=== PATIENT | female | born 1990 | race Caucasian/White ===

== ENCOUNTER 2021-08-01 15:29 | Emergency (ER) | payer SELFPAY ==
[2021-08-01 15:37] VITALS: BP 120/80; PULSE 102; RESP 18; TEMP 36.4; O2SAT 100; BMI 30.4
[2021-08-01 16:42] LABS: Basophils # 0.1 10^3/uL (0.0-0.1); Basophils % 1.1 %; Eosinophils # 0.3 10^3/uL (0.0-0.8); Eosinophils % 3.2 %; Hemoglobin 12.4 g/dL (11.5-15.3); Lymphocytes % 23.7 %; Mean Corpuscular HGB Conc 34.4 g/dL (30.0-36.0); Mean Corpuscular Hemoglobin 39.2 pg (28.0-34.0); Mean Corpuscular Volume 113.9 fl (81-99); Mean Platelet Volume 9.3 fL (7.4-10.4); Monocytes # 0.4 10^3/uL (0.2-0.9); Monocytes % 4.6 %; Neutrophils # 5.59 10^3/uL (1.8-7.7); Nucleated Red Blood Cells % 0 %; Platelet Count 377 10^3/cmm (130-400); Red Blood Count 3.16 10^6/uL (4.1-5.3); Red Cell Distribution Width 15.9 % (12.1-15.1); White Blood Count 8.5 10^3/uL (4.0-10.0)
[2021-08-01 16:59] LABS: HCG, Serum Qual Negative (Negative)
[2021-08-01 17:14] LABS: Alanine Aminotransferase 15 U/L (0-33); Albumin Level 3.3 g/dL (3.5-5.2); Alkaline Phosphatase 103 IU/L (35-105); Aspartate Amino Transferase 20 U/L (0-32); Blood Urea Nitrogen 3 mg/dL (6-20); Calcium 8.5 mg/dL (8.5-10.5); Carbon Dioxide 25 mmol/L (22-29); Chloride 98 mmol/L (98-107); Globulin 3.1 g/dL (1.3-4.6); Glucose 169 mg/dL (65-115); Osmolality Calculated 280 mOsm/kg (285-295); Sodium 135 mmol/L (136-145); Total Bilirubin 0.3 mg/dL (0.15-1.2); Total Protein 6.4 g/dL (6.6-8.7)
[2021-08-01 17:22] LABS: Add Urine Microscopic? YES; Bilirubin Urine 1+ (Negative); Blood Urine 2+ (Negative); Glucose Urine UA 2+ (Normal); Ketones Urine 1+ (Negative); Leukocyte Esterase Urine Negative (Negative); Nitrate Urine Negative (Negative); Protein Urine Neg (Negative); Sulfosalicylic Acid Urine Negative (Negative); Urine Appearance Clear (CLEAR); Urine Color Dark Yellow (Yellow); Urobilinogen Urine 4 mg/dL (Negative); pH Urine 8 (5-7)
[2021-08-01 17:23] LABS: Add Urine Culture? Yes; Bacteria Urine 1+ /hpf; Mucus Urine 1+ /hpf; RBC Urine 0-4 /hpf (0-2); WBC Urine 15-25 /hpf (0-5)
[2021-08-01 17:43] VITALS: BP 130/87; PULSE 109; RESP 18; O2SAT 98
--- NOTE | 2021-08-01 19:28 | ED_ITS ---
HPI - Weakness General: Chief complaint: Weakness Stated complaint: ILL X 2 MO:AFTER ABX,UNABLE TO KEEP FOOD DOWN,WEAK Time Seen by Provider: 08/01/21 19:28 History of Present Illness: HPI Narrative: 30-year-old female comes in today with complaints of persistent nausea and vomiting, weakness, and pain in bilateral feet. Patient denies any chronic medical problems. Patient reported on May 25 she had a urinary tract infection and was treated with a injection in the office and then Cipro to follow. Patient reports since that time she has had nausea and vomiting and diarrhea. Patient appears mildly unwell but not toxic. Patient does report pain in the lower feet bilaterally. Patient denies any history of diabetes. Review of Systems General: Reports: 10 or more systems reviewed and unremarkable except in HPI and below Const: Reports: malaise Musc: Reports: muscle weakness Neuro: Reports: weakness in extremities [facility] Female Reproductive History: Date of last menstrual period: 07/13/21 Physical Exam Const: COMMON NORMALS: no acute distress and patient oriented x3 GENERAL APPEARANCE: cooperative HENMT: COMMON NORMALS: normocephalic and Normal external nose present HEAD & SCALP: normal to inspection and normocephalic NOSE: Normal external nose present MOUTH: Normal oral and palatal mucosa present Eye: GENERAL EYE: appearance normal, both eyes and all related structures Neck/C-Spine: COMMON NORMALS: full ROM Lymph: LYMPHATIC: no lymphadenopathy noted Chest: COMMONS NORMALS: normal inspection of the chest Resp: COMMON NORMALS: normal respiratory effort EFFORT & INSPECTION: Yes able to speak in complete sentences Cardio: COMMON NORMALS: regular rate and regular rhythm RATE: regular rate RHYTHM: regular rhythm GI: COMMON NORMALS: non-tender : COMMON NORMALS: Yes no CVA tenderness BLADDER/KIDNEY EXAM: Yes no CVA tenderness Back/Pelvis: COMMON NORMALS: no CVA tenderness and thoracic and lumbar spine normal to inspection Extremity: NARRATIVE EXTREMITY EXAM: Tenderness to palpation of the bilateral feet. Pulses are intact. No edema or redness is noted. Neuro: COMMON NORMALS: patient oriented x3 and moves all extremities Psych: COMMON NORMALS: mental status grossly normal and cooperative Skin: COMMON NORMALS: no rashes or lesions noted GENERAL SKIN EXAM: no rashes or lesions noted Course ED course: 2129, reviewed CT scan with Dr. Madrid who recommended I talk with Dr. Wall, urologist for further recommendations. Dr. Wall was consulted regarding CT scan showing a left pyelonephritis with possible developing intraparenchymal abscesses. Dr. Wall recommended IV antibiotic and then discharge to home or admit as patient's condition suggest. Reviewed Dr. Wall's comments with Dr. Madrid he recommended IV antibiotic and then oral antibiotics for home. Patient was given 2 g of ceftriaxone with Levaquin 500 mg daily to follow. I reviewed this with patient who agreed to plan. I also recommended patient monitor for worsening symptoms such as high fever or alicia bility to hold medications down. Patient will follow up with the ER if she develops any of these symptoms. Vital Signs: Vital signs: Vital Signs Temperature 97.5 F L 08/01/21 15:37 Pulse Rate 109 H 08/01/21 17:43 Respiratory Rate 18 08/01/21 17:43 Blood Pressure 130/87 08/01/21 17:43 Pulse Oximetry 98 08/01/21 17:43 MDM - Weakness MDM Narrative: Medical decision making narrative: 30-year-old female comes in today with complaints of poor recovery after kidney infection. Patient was first diagnosed with a kidney infection on May 25. After completing antibiotics patient did have some nausea and vomiting that seem to wax and wane over the last 2 months. Patient though reports for the last week patient has been worsening symptoms to the point that she was unable to walk due to weakness and pain in the feet. Exam notes abdominal is soft and nontender. Patient does have some mild CVA tenderness on the left side with percussion. Vital signs were normal with no fever and only a slightly elevated pulse at 102. Differential diagnosis includes but not limited to pyelonephritis, renal abscess, UTI, cancer. Laboratory values showed a white count of 8.5, patient had a sodium 135 and potassium of 3.0, and a blood glucose of 169, anion gap was normal. Urinalysis showed white blood cell counts although the cath was dirty. CT showed some parenchymal stranding suggestion of a pyelonephritis with some possible developing abscess. This was reviewed with Dr. Madrid and Dr. Wall with recommendations for IV antibiotics, IV fluids, and then home with oral antibiotic. Patient agreed to plan with recommendations for follow-up or return to the ER. Lab Data: Labs: Lab Results 08/01/21 08/01/21 08/01/21 16:31 16:31 16:31 WBC 8.5 10^3/uL 10^3/ uL (4.0-10.0) RBC 3.16 10^6/uL L 10 ^6/uL (4.1-5.3) Hgb 12.4 g/dL g/dL (11.5-15.3) Hct 36.0 % L % (37.0-47.0) MCV 113.9 fl H fl (81-99) MCH 39.2 pg H pg (28.0-34.0) MCHC 34.4 g/dL g/dL (30.0-36.0) RDW 15.9 % H % (12.1-15.1) Plt Count 377 10^3/cmm 10^3 /cmm (130-400) MPV 9.3 fL fL (7.4-10.4) Neut % (Auto) 66.0 % % Lymph % (Auto) 23.7 % % [place] % (Auto) 4.6 % % Eos % (Auto) 3.2 % % Baso % (Auto) 1.1 % % Neut # (Auto) 5.59 10^3/uL 10^3 /uL (1.8-7.7) Lymph # (Auto) 2.0 10^3/uL 10^3/ uL (0.8-4.8) [place] # (Auto) 0.4 10^3/uL 10^3/ uL (0.2-0.9) Eos # (Auto) 0.3 10^3/uL 10^3/ uL (0.0-0.8) Baso # (Auto) 0.1 10^3/uL 10^3/ uL (0.0-0.1) Nucleated RBC % (a uto) 0 % % Nucleated RBCs # 0.0 /100WBC /100W BC Sodium 135 mmol/L L mmol /L (136-145) Potassium 3.0 mmol/L L mmol /L (3.5-5.1) Chloride 98 mmol/L mmol/L (98-107) Carbon Dioxide 25 mmol/L mmol/L (22-29) Anion Gap 15.0 (5-19) BUN 3 mg/dL L mg/dL (6-20) Creatinine 0.4 mg/dL L mg/dL (0.5-0.9) GFR Calculation 185.0 mL/min H mL /min (90-130) Glucose 169 mg/dL H mg/dL (65-115) Calculated Osmolal ity 280 mOsm/kg L mOs m/kg (285-295) Calcium 8.5 mg/dL mg/dL (8.5-10.5) Total Bilirubin 0.3 mg/dL mg/dL (0.15-1.2) AST 20 U/L U/L (0-32) ALT 15 U/L U/L (0-33) Alkaline Phosphata se 103 IU/L IU/L (35-105) Total Protein 6.4 g/dL L g/dL (6.6-8.7) Albumin 3.3 g/dL L g/dL (3.5-5.2) Globulin 3.1 g/dL g/dL (1.3-4.6) HCG, Qual Negative (Negative) Urine Color Urine Appearance Urine pH Ur Specific Gravit y Urine Protein Urine Glucose (UA) Urine Ketones Urine Blood Urine Nitrate Urine Bilirubin Prot Sulfosalicyli c Acd Urine Urobilinogen Ur Leukocyte Nayana ase Urine RBC Urine WBC Ur Squamous Epith Cells Amorphous Sediment Urine Bacteria Urine Mucus 08/01/21 16:31 WBC RBC Hgb Hct MCV MCH MCHC RDW Plt Count MPV Neut % (Auto) Lymph % (Auto) [place] % (Auto) Eos % (Auto) Baso % (Auto) Neut # (Auto) Lymph # (Auto) [place] # (Auto) Eos # (Auto) Baso # (Auto) Nucleated RBC % (a uto) Nucleated RBCs # Sodium Potassium Chloride Carbon Dioxide Anion Gap BUN Creatinine GFR Calculation Glucose Calculated Osmolal ity Calcium Total Bilirubin AST ALT Alkaline Phosphata se Total Protein Albumin Globulin HCG, Qual Urine Color Dark yellow (Yellow) Urine Appearance Clear (CLEAR) Urine pH 8 H (5-7) Ur Specific Gravit y 1.010 (1.005-1.030) Urine Protein Neg (Negative) Urine Glucose (UA) 2+ H (Normal) Urine Ketones 1+ H (Negative) Urine Blood 2+ H (Negative) Urine Nitrate Negative (Negative) Urine Bilirubin 1+ H (Negative) Prot Sulfosalicyli c Acd Negative (Negative) Urine Urobilinogen 4 mg/dL H mg/dL (Negative) Ur Leukocyte Nayana ase Negative (Negative) Urine RBC 0-4 /hpf H /hpf (0-2) Urine WBC 15-25 /hpf H /hpf (0-5) Ur Squamous Epith Cells 5-10 /hpf H /hpf (0-5) Amorphous Sediment Not Reportable Urine Bacteria 1+ /hpf H /hpf (NONE) Urine Mucus 1+ /hpf /hpf Discharge Plan Discharge Patient Disposition: Home Clinical Impression: Pyelonephritis, Dehydration Malnutrition Qualifiers: Malnutrition type: unspecified type Qualified Code(s): E46 - Unspecified protein-calorie malnutrition Condition: Stable Prescriptions: New levofloxacin 500 mg tablet 500 mg PO DAILY 10 Days Qty: 10 RF: 0 ondansetron 4 mg tablet,disintegrating 4 mg PO Q8H PRN (Reason: nausea and vomiting) Qty: 10 RF: 0 Discharge Orders: Discharge ED (Routine); Ordered 08/01/21 Ordered By: Scot Mchugh Discharge Diet: Usual diet Discharge Activity: Increase activity as tolerated Patient Instructions: Kidney Infection (ED), Opioid Safety Activity Restrictions/Additional Instructions: Home and rest. Drink plenty of fluids. Take medication as directed. Follow-up with primary care in 1 week. Return to the ER for high fever greater than 100.4, worsening symptoms, or new concerns. Coding Level of Care Code ED [employer] Operator for Chris Luevano Exam Comprehensive
--- NOTE | 2021-08-01 19:37 | CTR_ITS ---
PROCEDURE INFORMATION: Exam: CT Abdomen And Pelvis With Contrast Exam date and time: 08/01/2021 7:37 PM Age: 30 years old Clinical indication: Nausea and vomiting and other: Weight loss; Abdominal pain; Periumbilical; Additional info: N/v, recent pyelnephritis, wt loss TECHNIQUE: Imaging protocol: Computed tomography of the abdomen and pelvis with contrast. Radiation optimization: All CT scans at this facility use at least one of these dose optimization techniques: automated exposure control; mA and/or kV adjustment per patient size (includes targeted exams where dose is matched to clinical indication); or iterative reconstruction. Contrast material: OMNI 300; Contrast volume: 95 ml; Contrast route: INTRAVENOUS (IV); COMPARISON: No relevant prior studies available. RADIATION DOSE METRICS: Total DLP (mGy-cm): 1780.6 FINDINGS: Liver: There is a diffuse decrease in hepatic parenchymal density, consistent with fatty infiltration. Subcentimeter hypodensities are noted in the liver and are too small to characterize. Also identified are probable flash filling hemangiomas in the liver measuring up to 2.8 cm in size image 11 and image 14. Gallbladder and bile ducts: Normal. No calcified stones. No ductal dilation. Pancreas: The pancreas is normal. Spleen: The spleen is normal. Adrenal glands: The adrenal glands are normal. Kidneys and ureters: There is no evidence of hydronephrosis. There is no evidence of renal calcifications. Poorly defined areas streaky areas of hypodensity are noted in the upper an midpole left kidney concerning for pyelonephritis with central hypodensity measuring up to 1 cm in size image 24 that may reflect early small abscess versus proteinaceous/hemorrhagic cysts with surrounding pyelonephritis. Stomach and bowel: There is no evidence of intestinal perforation or obstruction. The wall of the entire colon is thickened but collapsed. This appearance may reflect lack of distention however mild colitis cannot be excluded. Appendix: A normal appendix is identified. Intraperitoneal space: Unremarkable. No free air. No significant fluid collection. Vasculature: The aorta is normal. Lymph nodes: Unremarkable.No enlarged lymph nodes. Urinary bladder: The bladder is decompressed. Reproductive: Unremarkable as visualized. Bones/joints: Unremarkable. No acute fracture. Soft tissues: Unremarkable. CT/CT abdomen pelvis w con* [id number] IMPRESSION: 1. Streaky appearance of the left kidney compatible with the history of pyelonephritis. Within this area of hypodensity 2 poorly marginated areas of hypodensity are noted that may reflect underlying proteinaceous/hemorrhagic cyst or possibly developing intraparenchymal abscesses. Follow-up scan would be most helpful in this regard. 2. The wall of the entire colon is thickened but collapsed. This appearance may reflect lack of distention however mild colitis cannot be excluded. COMMENTS: Consistent with the [employer]'s Incidental Findings Committee white paper (J Am Paulino Radiol 2018): Any incidental renal lesion less than 1 cm or classified as too small to characterize, or any incidental cystic renal lesion characterized as simple-appearing, is likely benign. No follow-up imaging is recommended for these lesions per consensus recommendations based on imaging criteria.
[2021-08-01] MEDS: sodium chloride 0.9% 1,000 ML 999 ML IV (20:04)
[2021-08-01] MEDS: ondansetron 2 mg/ML SDV 2 mL 4 MG IVP (20:04)
[2021-08-01] MEDS: potassium chloride ER 20 mEq Tablet 40 MEQ PO (20:04)
[2021-08-01] MEDS: iohexol 300 mg/mL 100 mL Btl IV (20:21)
[2021-08-01] MEDS: cefTRIAXone 2,000 MG in sodium chloride 0.9% (plus) 50 ML 100 MG IV (22:06)
[2021-08-01 22:18] LABS: Lactic Sepsis W/Reflex 1.6 mmol/L (0.5-2.2)
[2021-08-01 22:27] LABS: C Reactive Protein 29.5 mg/L (0.0-4.9); Creatine Phosphokinase 22 U/L (26-192); Thyroid Stimulating Hormone 3.23 uIU/mL (0.27-4.20)
[2021-08-01] MEDS: cyanocobalamin 1,000 mcg/mL SDV 1000 MCG IM (22:31)
[2021-08-01 22:37] VITALS: BP 128/89; PULSE 89; RESP 18; O2SAT 99
[2021-08-02 00:24] LABS: Vitamin B12 340 pg/mL (232-1245)
== END 2021-08-01 22:38 | disposition home or self-care (01) ==
PROVIDERS: Physician Assistant; Emergency Provider Nurse Practitioner Family
DX: E46 Unspecified protein-calorie malnutrition (principal); N12 Tubulo-interstitial nephritis, not specified as acute or chronic; E86.0 Dehydration
CPT/HCPCS: 74177; 80053; 81001; 82550; 82607; 83605; 84443; 84703; 85025; 86140; 87086; 96365; 96372; 96375; 99283; J0696; J2405; J3411; J3420; J7030; Q9967

== ENCOUNTER → 2021-09-07 11:08 | Outpatient (BNVA) | payer SELFPAY | PROVIDERS: PCP Registered Nurse; Referring Provider Registered Nurse; Visit Provider Nurse Practitioner Family | DX: N39.0 Urinary tract infection, site not specified (principal) | CPT/HCPCS: 81003; 87086 ==

== ENCOUNTER → 2021-09-29 07:59 | Outpatient (BNVA) | payer SELFPAY | PROVIDERS: PCP Registered Nurse; Visit Provider Urology | DX: N39.0 Urinary tract infection, site not specified (principal) | CPT/HCPCS: 81003 ==